=== PATIENT | male | born 2005 | race Two or more races ===

== ENCOUNTER → 2025-04-03 | Emergency (ER) | payer OTHER ==
[~2025-04-03] VITALS: Ht 180.3 cm; Wt 88.6 kg
[~2025-04-03] MED LIST: IBUP-1492 PO
[2025-04-03 16:05] VITALS: TEMP 98.4
[2025-04-03] MEDS: IBUPROFEN 600 MG TABLET PO ONE (18:01)
[2025-04-03 18:15] VITALS: BP 122/73; PULSE 86; RESP 16; O2SAT 96
== END | disposition still patient (30) ==
LOC: EMS 16:00
DX: S63.501A Unspecified sprain of right wrist, initial encounter (principal); W19.XXXA Unspecified fall, initial encounter; Y93.89 Activity, other specified; Y92.89 Other specified places as the place of occurrence of the external cause; Y99.8 Other external cause status
CPT/HCPCS: 99284; 73110-TC; 73130-TC; Z7502; Z7610